=== PATIENT | female | born 1955 | race Caucasian/White ===

== ENCOUNTER 2017-03-24 05:35 | Emergency (ER) | payer OTHER ==
[~2017-03-24] VITALS: Ht 167.6 cm; Wt 93.0 kg
[~2017-03-24 05:35] MED LIST: METFORMIN HCL500 MG PO; ORPH100T PO; PEPCID40 MG PO; ZOFRAN4 MG PO
[2017-03-24] MEDS ORDERED: TRULICITY0.75 MG/0. SQ (05:47)
[2017-03-24] MEDS ORDERED: HUMULIN 70100 UNIT/2 IJ (05:47)
== END 2017-03-24 11:06 | disposition home or self-care (01) ==
LOC: ER 05:35
DX: J09.X2 Influenza due to identified novel influenza A virus with other respiratory manifestations (principal)

== ENCOUNTER 2017-04-05 09:05 | Outpatient (CLI) | payer OTHER ==
[~2017-04-05 09:05] MED LIST changes: +HUMULIN 70100 UNIT/2 IJ; +TRULICITY0.75 MG/0. SQ
== END 2017-04-05 09:21 | disposition home or self-care (01) ==
LOC: LAB 09:05
DX: I11.9 Hypertensive heart disease without heart failure (principal); E11.9 Type 2 diabetes mellitus without complications; E78.2 Mixed hyperlipidemia; E03.8 Other specified hypothyroidism

== ENCOUNTER 2017-07-25 07:39 | Emergency (ER) | payer OTHER ==
[~2017-07-25] VITALS: Ht 167.6 cm; Wt 97.1 kg
== END 2017-07-25 18:00 | disposition home or self-care (01) ==
LOC: ER 07:39 → CPU-OBS 08:23 → ER 18:00
DX: R07.89 Other chest pain (principal)
CPT/HCPCS: G0378; G0379; 93005; 82805; 36600

== ENCOUNTER 2017-08-01 09:11 | Outpatient (CLI) | payer OTHER | END 2017-08-01 09:23 | disposition home or self-care (01) | LOC: LAB 09:11 | DX: I78.0 Hereditary hemorrhagic telangiectasia (principal); Z51.81 Encounter for therapeutic drug level monitoring ==

== ENCOUNTER 2017-08-04 08:22 | Outpatient (CLI) | payer OTHER | END 2017-08-04 15:47 | disposition home or self-care (01) | LOC: TOM 08:22 | DX: I78.0 Hereditary hemorrhagic telangiectasia (principal) | CPT/HCPCS: 71275 ==

== ENCOUNTER 2019-03-24 21:03 | Emergency (ER) | payer OTHER ==
[~2019-03-24] VITALS: Ht 175.3 cm; Wt 106.6 kg
== END 2019-03-24 23:04 | disposition home or self-care (01) ==
LOC: ER 21:03
DX: M62.830 Muscle spasm of back (principal)

== ENCOUNTER 2019-05-12 09:49 | Outpatient (CLI) | payer OTHER | END 2019-05-12 10:02 | disposition home or self-care (01) | LOC: LAB 09:49 | DX: E11.9 Type 2 diabetes mellitus without complications (principal); D64.89 Other specified anemias; I78.8 Other diseases of capillaries; I77.89 Other specified disorders of arteries and arterioles; E83.52 Hypercalcemia; E78.00 Pure hypercholesterolemia, unspecified ==